=== PATIENT | female | born 1930 | race Caucasian/White ===

== ENCOUNTER 2016-11-16 11:13 | Emergency (ER) | payer OTHER, MEDICAID ==
[~2016-11-16] VITALS: Ht 157.5 cm; Wt 65.8 kg
[2016-11-16 11:13] VITALS: BP_SYST 162
[2016-11-16 12:29] VITALS: BP_SYST 159
== END 2016-11-16 12:31 | disposition home or self-care (01) ==
LOC: SED 11:13
DX: S05.01XA Injury of conjunctiva and corneal abrasion without foreign body, right eye, initial encounter (principal); Z88.4 Allergy status to anesthetic agent; Z88.5 Allergy status to narcotic agent; W22.8XXA Striking against or struck by other objects, initial encounter; Y93.89 Activity, other specified; Y92.89 Other specified places as the place of occurrence of the external cause; Y99.8 Other external cause status
CPT/HCPCS: 99282